=== PATIENT | female | born 1995 | race African-American/Black ===

== ENCOUNTER 2024-03-19 13:59 | Emergency (ER) | payer SELFPAY ==
[~2024-03-19] VITALS: Ht 157.5 cm; Wt 59.2 kg
[2024-03-19] MEDS ORDERED: PAMELOR10 MG PO (14:41)
[2024-03-19] MEDS: PREDNISONE 20 MG TAB PO ONE (15:08)
[2024-03-19] MEDS: KETOROLAC TROMETHAMINE 30 MG/ML VIAL IV STA (15:09)
[2024-03-19] MEDS ORDERED: IOPAMIDOL 370 MG/ML 100 ML INFUS..BTL INJ ONE (15:27)
[2024-03-19 16:14] VITALS: PULSE 80; RESP 16; TEMP 98.8; O2SAT 100
[2024-03-19] MEDS ORDERED: PREDNISONE20 MG PO (16:17)
== END 2024-03-19 16:23 | disposition home or self-care (01) ==
LOC: FSED 14:13
DX: M79.2 Neuralgia and neuritis, unspecified (principal); M54.2 Cervicalgia; G89.29 Other chronic pain; Z87.19 Personal history of other diseases of the digestive system
CPT/HCPCS: 72193; 80048; 81025; 85025; 96374; 99284; J1885; J7512; Q9967